=== PATIENT | female | born 1985 | race African-American/Black ===

== ENCOUNTER 2018-06-07 11:01 | Emergency (ER) | payer OTHER ==
[~2018-06-07] VITALS: Ht 172.7 cm; Wt 68.0 kg
[2018-06-07 11:19] VITALS: BP 149/80
[2018-06-07 12:50] LABS: Urine Bacteria MANY /hpf (None Seen); Urine Blood 1+ /uL (Negative); Urine Hyaline Cast FEW /lpf (0 - 2); Urine Specific Gravity 1.007 (1.001-1.035); Urine WBC 6 /hpf (0 - 5)
== END 2018-06-07 14:28 | disposition left against medical advice (07) ==
LOC: ER 11:01
DX: N20.0 Calculus of kidney (principal)
CPT/HCPCS: 81001; 81025